=== PATIENT | female | born 1990 | race Caucasian/White ===

== ENCOUNTER 2017-06-18 09:06 | Outpatient (CLI) ==
--- NOTE | 2017-06-18 10:49 | US ---
Exam: Alarcon-scale and color Doppler ultrasonographic evaluation of the thyroid. Comparison: None available. Reason for exam: Enlarged thyroid. FINDINGS: The right thyroid lobe measures approximately 6.26 x 2.68 x 2.05 cm with heterogeneous ap pearing echotexture and increased vascular flow. There is a region of heterogeneous appearing tissue versus an ill-defined nodule in the midportion o f the right thyroid lobe measures approximately 1.73 x 1.61 x 2.80 cm with internal vascularity. The isthmus measures 0.65 cm with increased vascular flow. The left thyroid lobe measures approximately 5.95 x 2.39 x 1.90 cm with heterogeneous appearing echo texture and increased vascular flow. Impression: 1. Heterogeneous appearing echotexture with increased vascular flow seen throughout the thyroid glan d. Imaging findings are consistent with Graves' disease or Melissa's thyroiditis. Would consider endocrine consultation. 2. There is a heterogeneous appearing 2.8 cm region of poorly marginated tissue or an ill-defined n odule in the right thyroid lobe. Recommend short term follow-up evaluation to document resolution/s tability.
== END 2017-06-18 09:07 | disposition home or self-care (01) ==
LOC: RAD 09:06 → EDBD 09:30
PROVIDERS: ATTEND Nurse Practitioner
DX: E01.0 Iodine-deficiency related diffuse (endemic) goiter (principal)

== ENCOUNTER 2018-01-04 11:56 | Outpatient (CLI) ==
--- NOTE | 2018-01-04 12:14 | DI ---
EXAM: Chest two view, frontal and lateral views. HISTORY: Shortness of breath. COMPARISON: None available. FINDINGS: The heart size is normal. There is no pulmonary vascular congestion. The lungs are clear . No pleural effusion or pneumothorax is seen. No acute osseous abnormality identified. IMPRESSION: No acute cardiopulmonary process.
== END 2018-01-04 11:57 | disposition home or self-care (01) ==
LOC: RAD 11:56
PROVIDERS: ATTEND Nurse Practitioner
DX: R06.02 Shortness of breath (principal)